=== PATIENT | female | born 1985 | race Caucasian/White ===

== ENCOUNTER 2016-11-30 09:04 | Day surgery (SDC) | payer OTHER ==
[~2016-11-30 09:04] MED LIST: LIDOCAINE HCL 1% MPF SOL ONE; PROPOFOL 500 MG/50 ML EMU IV ONE
[2016-11-30 11:26] VITALS: RESP 20; TEMP 97.6
[2016-11-30 11:31] VITALS: BP 127/74; PULSE 66; O2SAT 99
== END 2016-11-30 11:50 | disposition home or self-care (01) | DRG 951 ==
LOC: SURG 09:04
PROVIDERS: ATTEND Internal Medicine Gastroenterology
DX: Z86.010 Personal history of colon polyps (principal); D12.2 Benign neoplasm of ascending colon; K64.8 Other hemorrhoids
CPT/HCPCS: 84703; 99001; J2001; J2704

== ENCOUNTER 2017-09-08 07:37 | Inpatient (IN) | payer OTHER ==
[2017-09-08] MEDS ORDERED: METHYLERGONOVINE MALEATE 0.2 MG/ML SOL IM PRN (08:34)
[2017-09-08] MEDS ORDERED: OXYTOCIN 10000 MU/ML SOL IM PRN (08:34)
[2017-09-08] MEDS ORDERED: LACTATED RINGERS 1,000 ML IV PRN (08:34)
[2017-09-08] MEDS ORDERED: CARBOPROST 250 MCG/ML SOL IM PRN (08:34)
[2017-09-08] MEDS ORDERED: FENTANYL 100MCG/2ML SOL IV PRN (08:34)
[2017-09-08] MEDS ORDERED: MEPIVACAINE HCL 1% MPF 30 ML SOL INFIL PRN (08:34)
[2017-09-08 09:12] LABS: BASOPHILS % (AUTO) 1 % (0-3); EOSINOPHILS % (AUTO) 1 % (0-9); HEMATOCRIT 33 % (35-47); MEAN CORPUSCULAR HGB CONC 34.5 gm/dl (32.0-36.0); MEAN CORPUSCULAR VOLUME 91 fL (81-99); MONOCYTES % (AUTO) 7.3 % (0-12); NEUTROPHILS % (AUTO) 72.5 % (37-80)
[2017-09-08] MEDS ORDERED: TERBUTALINE SULFATE 1 MG/ML SOL SC PRN (12:32)
[2017-09-08] MEDS ORDERED: LACTATED RINGERS 1,000 ML IV SCH (12:45)
[2017-09-08] MEDS ORDERED: OXYTOCIN 10000 MU/ML 20,000 MU in LACTATED RINGERS 1,000 ML IV SCH (12:45)
[2017-09-08] MEDS: SODIUM CHLORIDE 0.9% FLUSH 10 ML SOL IV PRN (12:50)
[2017-09-08] MEDS: SODIUM CHLORIDE 0.9% FLUSH 10 ML SOL IV SCH ×2 (12:51→19:21)
[2017-09-08] MEDS ORDERED: LIDOCAINE HCL 2% MPF SOL ONE (15:14)
[2017-09-08] MEDS ORDERED: NALOXONE HYDROCHLORIDE 0.4 MG/ML SOL IV PRN (15:27)
[2017-09-08] MEDS ORDERED: EPHEDRINE SULFATE 50 MG/ML SOL IV PRN (15:27)
[2017-09-08] MEDS ORDERED: DIPHENHYDRAMINE 50 MG/ML SOL IV PRN (15:27)
[2017-09-08] MEDS ORDERED: NALBUPHINE HCL 20 MG/ML SOL IV PRN (15:27)
[2017-09-08] MEDS ORDERED: ROPIVACAINE HYDROCHLORIDE 5 MG/ML SOL ONE (16:02)
[2017-09-08] MEDS ORDERED: FENTANYL 250 MCG/ 5ML SOL ONE (16:02)
[2017-09-08] MEDS: LACTATED RINGERS 1,000 ML IV SCH ×3 (16:16→19:21)
[2017-09-08] MEDS ORDERED: ALUMINUM/MAGNESIUM 30 ML SUS ONE (16:31)
[2017-09-08] MEDS: ALUMINUM/MAGNESIUM 30 ML SUS PO PRN (16:35)
[2017-09-08] MEDS ORDERED: METHYLERGONOVINE MALEATE 0.2 MG TAB PO PRN (17:47)
[2017-09-08] MEDS ORDERED: BISACODYL 10 MG SUP PR PRN (17:47)
[2017-09-08] MEDS ORDERED: TEMAZEPAM 15MG 15 MG CAP PO PRN (17:47)
[2017-09-08] MEDS ORDERED: BENZOCAINE/MENTHOL 1 SPR TOP PRN (17:47)
[2017-09-08] MEDS ORDERED: WITCH HAZEL 1 EA PAD TOP PRN (17:47)
[2017-09-08] MEDS ORDERED: FLEET ENEMA PR PRN (17:47)
[2017-09-08] MEDS: IBUPROFEN 600 MG TAB PO PRN (18:42)
[2017-09-08] MEDS ORDERED: ONDANSETRON 4 MG ODT BU PRN (20:01)
[2017-09-08] MEDS ORDERED: ONDANSETRON 4 MG ODT ONE (20:26)
[2017-09-08] MEDS ORDERED: AMLODIPINE 5 MG TAB PO ONE (21:00)
[2017-09-08] MEDS ORDERED: AMLODIPINE 5 MG TAB ONE (21:07)
[2017-09-08] MEDS: DOCUSATE SODIUM 100 MG SGL PO SCH (21:17)
[2017-09-09] MEDS: ALUMINUM/MAGNESIUM 30 ML SUS PO PRN (00:01)
[2017-09-09] MEDS: SODIUM CHLORIDE 0.9% FLUSH 10 ML SOL IV SCH ×4 (00:27→23:50)
[2017-09-09] MEDS: IBUPROFEN 600 MG TAB PO PRN ×4 (00:28→23:38)
[2017-09-09] MEDS: LACTATED RINGERS 1,000 ML IV SCH (00:54)
[2017-09-09] MEDS ORDERED: LACTATED RINGERS 1,000 ML IV SCH (06:45)
[2017-09-09] MEDS ORDERED: LIDOCAINE HCL 2% MPF SOL ONE ×2 (07:32→07:33)
[2017-09-09] MEDS ORDERED: BUPIVACAINE HCL 0.5% MPF 10 ML SOL ONE (07:36)
[2017-09-09] MEDS: SODIUM CHLORIDE 0.9% FLUSH 10 ML SOL IV PRN (07:42)
[2017-09-09] MEDS ORDERED: PROPOFOL 10 MG/ML EMU IV ONE (07:58)
[2017-09-09] MEDS ORDERED: MIDAZOLAM 2 MG/2 ML SOL ONE (08:25)
[2017-09-09] MEDS ORDERED: ONDANSETRON HCL 4 MG TAB PO PRN (09:25)
[2017-09-09] MEDS ORDERED: FLUMAZENIL 1 MG/10 ML SOL IV ONE (09:26)
[2017-09-09] MEDS ORDERED: LACTATED RINGERS 1,000 ML IV ONE (10:14)
[2017-09-09] MEDS ORDERED: LEVOTHYROXINE SODIUM 50 MCG TAB ONE (10:47)
[2017-09-09] MEDS: LEVOTHYROXINE SODIUM 50 MCG TAB PO SCH (10:49)
[2017-09-09] MEDS: DOCUSATE SODIUM 100 MG SGL PO SCH ×2 (11:18→21:58)
[2017-09-09] MEDS: AMLODIPINE 5 MG TAB PO SCH (11:30)
[2017-09-09] MEDS: APAP/HYDROCODONE 325/5 TAB PO PRN ×2 (16:02→17:05)
[2017-09-09] MEDS ORDERED: FAMOTIDINE 20 MG TAB PO SCH (21:00)
[2017-09-09] MEDS ORDERED: FAMOTIDINE 20 MG TAB ONE (21:55)
[2017-09-10 00:10] VITALS: O2SAT 98
[2017-09-10] MEDS: IBUPROFEN 600 MG TAB PO PRN ×2 (05:32→11:05)
[2017-09-10] MEDS ORDERED: LEVOTHYROXINE SODIUM 50 MCG TAB ONE (06:18)
[2017-09-10 07:47] VITALS: BP 132/81; PULSE 87; RESP 20; TEMP 99.1
[2017-09-10] MEDS: LEVOTHYROXINE SODIUM 50 MCG TAB PO SCH (07:49)
[2017-09-10] MEDS ORDERED: AMLODIPINE 5 MG TAB ONE (08:53)
[2017-09-10] MEDS: AMLODIPINE 5 MG TAB PO SCH (09:04)
[2017-09-10] MEDS: DOCUSATE SODIUM 100 MG SGL PO SCH (09:04)
== END 2017-09-10 11:22 | disposition home or self-care (01) | DRG 541 ==
LOC: OB 07:37 → OBSVTOIN 07:37 → OB 09-09 13:51
PROVIDERS: ADMIT Family Medicine; ATTEND Family Medicine
PROC: 10E0XZZ Delivery of Products of Conception, External Approach (ICD-10-PCS; principal; 2017-09-08)
PROC: 0UB70ZZ Excision of Bilateral Fallopian Tubes, Open Approach (ICD-10-PCS; 2017-09-09)
DX: O42.02 Full-term premature rupture of membranes, onset of labor within 24 hours of rupture (principal); O36.5930 Maternal care for other known or suspected poor fetal growth, third trimester, not applicable or unspecified; O99.334 Smoking (tobacco) complicating childbirth; O76 Abnormality in fetal heart rate and rhythm complicating labor and delivery; O69.81X0 Labor and delivery complicated by cord around neck, without compression, not applicable or unspecified; O71.4 Obstetric high vaginal laceration alone; Z3A.40 40 weeks gestation of pregnancy; Z37.0 Single live birth; Z30.2 Encounter for sterilization
CPT/HCPCS: 36415; 59025; 84112; 85018; 85025; J0670; J2250; J2590; J2795; J3010; A9270-GY; J2704; J3490

== ENCOUNTER 2017-09-11 02:50 | Emergency (ER) | payer OTHER ==
[2017-09-11 03:12] VITALS: RESP 20; TEMP 97.4; O2SAT 94
[2017-09-11 04:02] VITALS: BP 165/101; PULSE 68
== END 2017-09-11 03:53 | disposition home or self-care (01) ==
LOC: ED 02:50
DX: L76.22 Postprocedural hemorrhage of skin and subcutaneous tissue following other procedure (principal); I10 Essential (primary) hypertension
CPT/HCPCS: 99282; 99283; A6402

== ENCOUNTER 2019-03-28 01:52 | Emergency (ER) | payer OTHER ==
[2019-03-28 02:07] VITALS: RESP 18; TEMP 98.1; O2SAT 99
[2019-03-28 02:42] LABS: APPEARANCE,URINE Clear; BILIRUBIN,URINE NEGATIVE (NEGATIVE); COLOR,URINE Yellow; GLUCOSE, URINE (UA) NEGATIVE (NEGATIVE); KETONES,URINE NEGATIVE (NEGATIVE); LEUKOCYTE ESTERASE ,URINE NEGATIVE (NEGATIVE); NITRATE,URINE NEGATIVE (NEGATIVE); OCCULT BLOOD,URINE NEGATIVE (NEG-TRACE); PH,URINE 8.5; UROBILINOGEN,URINE 0.2 (0.2-1.0 EU)
[2019-03-28 02:53] VITALS: BP 160/96; PULSE 77
[2019-03-28 02:53] LABS: RBC,URINE 0-2 (0-3AV/HPF)
[2019-03-28 02:54] LABS: BACTERIA TRACE (< 1+); CRYSTALS NEGATIVE (0-3 AVE/HPF); EPITHELIAL CELLS 0-3 (SQUAMOUS); WBC,URINE 0-3 (0-5AV/HPF)
[2019-03-28] MEDS ORDERED: LEVOFLOXACIN 500 MG TAB PO ONE (02:57)
[2019-03-28] MEDS ORDERED: LEVOFLOXACIN 500 MG TAB ONE (03:01)
== END 2019-03-28 03:08 | disposition home or self-care (01) | DRG 864 ==
LOC: ED 01:52
DX: R50.9 Fever, unspecified (principal); J01.10 Acute frontal sinusitis, unspecified; Z72.0 Tobacco use
CPT/HCPCS: 81001; 99282; A9270-GY